=== PATIENT | female | born 1955 | race African-American/Black ===

== ENCOUNTER 2018-08-20 21:41 | Observation (INO) ==
[2018-08-20] MEDS ORDERED: LORazepam 1 MG Tablet PO ONE (22:05)
--- NOTE | 2018-08-20 22:32 | XR ---
EXAM DATE: 08/20/2018 10:30 PM EST AGE/SEX: 62 years / Female INDICATIONS: Left sided chest pain. CLINICAL DATA: This is the patient's initial encounter. Patient reports that signs and symptoms have been present for 2 days and indicates a pain score of 8/10. MEDICAL/SURGICAL HISTORY: Asthma. None. COMPARISON: No prior exams available for comparison. FINDINGS: A single AP view of the chest demonstrates the lungs to be symmetrically aerated without evidence of mass, infiltrate or effusion. No evidence of pneumothorax. The cardiomediastinal contours are unrema rkable. Osseous structures are intact. CONCLUSION: The lungs are clear. Electronically signed by: Brandon Oates MD 08/20/2018 10:31 PM EST
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
[2018-08-20 22:59] LABS: Baso # (Auto) 0.2 th/mm3 (0.0-0.2); Baso % (Auto) 3.4 % (0.0-2.0); Eos # (Auto) 0.1 th/mm3 (0.0-0.4); Eos % (Auto) 2.8 % (0.0-4.0); Lymph % (Auto) 20.4 % (9.0-44.0); Mean Corpuscular HGB Conc 33.3 % (32.0-36.0); Mean Corpuscular Hemoglobin 28.7 pg (27.0-34.0); Mean Corpuscular Volume 86.1 fL (80.0-100.0); Mono # (Auto) 0.4 th/mm3 (0.0-0.9); Mono % (Auto) 7.5 % (0.0-8.0); Neut # (Auto) 3.3 th/mm3 (1.8-7.7); Neut % (Auto) 65.9 % (16.0-70.0); Platelet Count 292 th/mm3 (150-450); Red Blood Count 4.19 mil/mm3 (4.00-5.30); Red Cell Distribution Width 15.1 % (11.6-17.2); White Blood Count 5.1 th/mm3 (4.0-11.0)
[2018-08-20 23:10] LABS: Activated Partial Thrombo Time 26.6 sec (23.4-31.7); Prothrombin Time 9.9 sec (9.8-11.6)
[2018-08-20 23:21] LABS: Alanine Aminotransferase 14 U/L (10-53); Albumin 3.2 g/dL (3.4-5.0); Anion Gap 8 meq/L (5-15); Aspartate Aminotransferase 14 U/L (15-37); Blood Urea Nitrogen 14 mg/dL (7-18); Calcium 8.5 mg/dL (8.5-10.1); Carbon Dioxide 26.2 meq/L (21.0-32.0); Chloride 108 meq/L (98-107); Glomerular Filtration Rate 65 mL/min (>89); Glucose,Random 107 mg/dL (74-106); Potassium 3.8 meq/L (3.5-5.1); Sodium 142 meq/L (136-145)
[2018-08-20 23:25] LABS: Alkaline Phosphatase 102 U/L (45-117); Creatine Kinase 73 U/L (26-192); Total Protein 7.5 g/dL (6.4-8.2)
[2018-08-21] MEDS ORDERED: ALPRAZolam 0.25 MG Tablet PO PRN (00:26)
[2018-08-21] MEDS ORDERED: Acetaminophen 500 MG Tablet PO PRN (00:26)
[2018-08-21 01:52] LABS: Creatine Kinase 71 U/L (26-192)
[2018-08-21 05:09] LABS: Creatine Kinase 71 U/L (26-192)
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
[2018-08-21 08:38] VITALS: BP 149/70; TEMP 98.2; O2SAT 97
[2018-08-21] MEDS ORDERED: amLODIPine 10 MG Tablet PO SCH (09:00)
--- NOTE | 2018-08-21 10:50 | TR ---
Date Performed: 08/21/2018 Time Performed: 09:44:00 DOCTOR: Dereje Mead DRUG LIST: CLINICAL HISTORY: CHEST PAIN REASON FOR TEST: Chest pain REASON FOR ENDING: OBSERVATION: CONCLUSION: Dominick protocol completed. Stopped sec to reaching target heart rate and leg fatigue. Maximum XI=076 Max HR Achieved=86.0% Maximum BP=N/A Total Exercise Time=2:47. No reprod chest discom fort. Upon standing baseline EKG t wave inversion Lead III, occassional lead AVF, not seen on laying EKGs. Normal bp response. Poor exercise tolerance. At peak, j point depression, upsloping st segment s inferiorly. During recovery minimal st depression inferior, upsloping segments, otherwise recovery quick and unremarkable. COMMENTS: Conclusion: Normal treadmill exercise. No evidence of ischemia. variable ST segment d epression inferiorly ,less than 1 mm.
[2018-08-21 11:16] VITALS: RESP 16
[2018-08-21 11:45] VITALS: PULSE 62
--- NOTE | 2018-08-21 14:33 | ECG ---
Date Performed: 08/20/2018 Time Performed: 22:10:01 PTAGE: 62 years EKG: Sinus rhythm NORMAL ECG NO PREVIOUS TRACING DOCTOR: Dereje Mead Interpretating Date/Time 08/21/2018 14:31:53
--- NOTE | 2018-08-21 14:33 | ECG ---
Date Performed: 08/21/2018 Time Performed: 08:49:44 PTAGE: 62 years EKG: Sinus rhythm NORMAL ECG Since PREVIOUS TRACING , no significant change noted DOCTOR: Dereje Mead Interpretating Date/Time 08/21/2018 14:31:23
--- NOTE | 2018-08-21 14:33 | ECG ---
Date Performed: 08/21/2018 Time Performed: 03:57:50 PTAGE: 62 years EKG: SINUS BRADYCARDIA BORDERLINE ECG PREVIOUS TRACING : 08/20/2018 22.10 Since previous tracing, no significant change noted DOCTOR: Dereje Mead Interpretating Date/Time 08/21/2018 14:31:41
== END 2018-08-21 12:16 | disposition home or self-care (01) ==
LOC: NEDA 21:41 → NEPE 21:41 → NEPFCDU 08-21 02:43
PROVIDERS: ADMIT Internal Medicine Interventional Cardiology; ATTEND Internal Medicine Interventional Cardiology
DX: I25.2 Old myocardial infarction; K21.9 Gastro-esophageal reflux disease without esophagitis; Z79.899 Other long term (current) drug therapy; I34.1 Nonrheumatic mitral (valve) prolapse; Z77.22 Contact with and (suspected) exposure to environmental tobacco smoke (acute) (chronic); I25.10 Atherosclerotic heart disease of native coronary artery without angina pectoris; F40.240 Claustrophobia; J45.909 Unspecified asthma, uncomplicated; M79.7 Fibromyalgia; R07.89 Other chest pain; I10 Essential (primary) hypertension